=== PATIENT | female | born 1975 | race Caucasian/White ===

== ENCOUNTER 2019-04-29 21:36 | Emergency (ER) | payer OTHER ==
[~2019-04-29] VITALS: Ht 160 cm; Wt 131.5 kg
[2019-04-29] MEDS ORDERED: ATIVAN2 MG (21:47)
[2019-04-30] MEDS ORDERED: ATIVAN1 M1 PO (00:47)
== END 2019-04-30 02:35 | disposition home or self-care (01) ==
LOC: ER 21:36
DX: F41.0 Panic disorder [episodic paroxysmal anxiety] (principal)